=== PATIENT | male | born 1970 | race Caucasian/White ===

== ENCOUNTER 2024-01-27 16:00 | Emergency (ER) | payer OTHER, SELFPAY ==
[2024-01-27] VITALS (18 sets, daily range): BP systolic 130–152; BP diastolic 77–84; PULSE 104–116; RESP 13–20; TEMP 36.2; O2SAT 96–100
--- NOTE | 2024-01-27 16:00 | RT.EKG_ITS ---
APPROVED REPORT Exam: Resting ECG Reason for Exam: ams Patient Location: E HR:102 bpm ECG Measurements Heart Rate 102 AXIS OR 157 P 41 QRSd 81 QRS 26 QT 343 T 45 QTc 447 Conclusion Sinus tachycardia, rate 102 No STEMI
--- NOTE | 2024-01-27 16:16 | DI.CT_ITS ---
Exam(s) CT HEAD - STROKE PROTOCOL EXAM: CT HEAD - STROKE PROTOCOL CLINICAL HISTORY: AMS. TECHNIQUE: Imaging Protocol: Axial computed tomography images with coronal and sagittal reformatted images were created and reviewed COMPARISON: No exams were available for comparison FINDINGS: Ventricles and Extra axial spaces: Normal in size and morphology for the patient's age. Hemorrhage: None. Cerebral parenchyma: No evidence of acute infarct or mass. Midline shift: None. Brainstem/Cerebellum: Normal. Calvarium: Normal. Visualized Paranasal sinuses:Clear. Mastoids: Clear. Soft Tissues: Unremarkable. ORBITS: Unremarkable. PITUITARY: Not enlarged. IMPRESSION: No acute intracranial process. RADIATION DOSE DELIVERED: Total DLP DATA REPOSITORY: All CT scans at this facility are submitted to the National Radiology Data Registry (NRDR) Dose Index Registry (DIR) with the [employer] (A[employer]). RADIATION OPTIMIZATION: All CT scans at this facility use at least one of these dose optimization te chniques: automated exposure control; mA and/or kV adjustment per patient size (includes targeted exa ms where dose is matched to clinical indication); or iterative reconstruction.
--- NOTE | 2024-01-27 16:16 | W.ED.GENAD ---
Discharge Plan Disposition Patient Disposition: Home Condition: Stable Discharge Details Clinical Impression: Alcohol use disorder Primary Care Provider: Wendy Escamilla ED Provider: Niecy Bartholomew Discharge Instructions Instructions: Alcohol Use Disorder ED Additional Instructions: You were seen in the emergency department today for evaluation of altered mental status. In our department you had a full physical examination performed, had a CT scan of your brain that was normal, and had laboratory studies that were most notable for an elevated alcohol level. We did discuss sobriety maintenance resources and at this time you are concerned about your ability to stop drinking alcohol safely while taking medications, and so we have not prescribed you any sobriety maintenance medications at this time. Quitting alcohol is a challenging thing to do and often takes several attempts, so you should not feel disheartened about today's visit. I want you to follow-up with your primary care provider in the next few days to discuss this visit and any symptoms that change, worsen, or persist. You can certainly return to the emergency department if you have any concerns, and thank you for allowing us to be part of your care. HPI General Mode of arrival: ambulatory. Date/Time Provider Initiated Documentation: 01/27/24 16:16. Limitations to Documentation: altered mental status. Information obtained by: patient and family. HPI Narrative: MDM: This is a 53-year-old male patient presenting for evaluation of altered mental status. Differential includes but is not limited to intoxication, toxic exposure, withdrawal syndromes, metabolic and electrolyte derangements, anemia, kidney injury, liver disease. He certainly considered trauma though there was none reported and it did not appear that the patient had any injuries on my physical examination. The patient appears clinically intoxicated, and I do not see any evidence of acute withdrawal with the exception of the tachycardia. We will obtain laboratory studies to include CBC, CMP, serum and urine tox screen, troponin, TSH, and UA. I provided the patient with IV fluids, and we will monitor the patient here in the emergency department. I will obtain a CT head to evaluate for abnormalities to account for the patient's symptoms. ED Course: I independently interpreted the laboratory studies, which show no significant leukocytosis, anemia, or thrombocytopenia. The chemistry panel is without evidence of electrolyte abnormality, kidney dysfunction, or liver injury, though he does have an elevation in his anion gap to 21. The patient's urine is positive for ketones, likely due to alcoholic ketosis in this patient who has a normal blood glucose and a normal bicarb. I have a low concern for DKA in this nondiabetic patient. Troponin and TSH are normal, urinalysis did not show any infectious findings, but the talk screen is positive for an ethanol level of 278 as well as cocaine and THC. After metabolization in the emergency department, I had a shared decision-making conversation with the patient and his and offered him treatment for his alcohol use the patient recognizes that he does not want to drink, but states that he feels at this time that he will be drinking forever and cannot stop. I did discuss admission and the patient is desiring of discharge, and I do not see any indication to place this patient on a medical hold as he is without suicidal or homicidal ideation and is hemodynamically appropriate with a strong family support. I do not feel comfortable sending this patient home on the lithium taper given that he states he will continue to drink alcohol even though his family member would make him an excellent candidate to do so if he felt motivated. I did reassure the patient that he could seek care and reengage with sobriety maintenance resources at any time when he feels ready. At this time, the patient has had a full medical evaluation and is safe for discharge to home. They are hemodynamically stable, ambulatory, and tolerating PO. They are understanding of the follow-up plan and return precautions. They left our facility without incident. Niecy Bartholomew MD HPI: This is a 53-year-old male patient with a past medical history significant for alcohol use disorder, brought in by EMS for altered mental status. The patient was found by his camera technician to be naked and laughing on the floor of his house after the camera technician went to check on him when he missed worship. The patient's was not at home, but the patient reports that he is a heavy drinker and had several beverages this morning. He did not sustain trauma per his report, was hemodynamically appropriate though tachycardic on arrival. It took the camera technician quite some time to get the patient to our hospital by personal vehicle. The arrived and was able to provide some collateral information. The patient is not supposed to be drinking but does tend to have a daily drink despite this, and has struggled with sobriety and has not had any successful sobriety periods of time. He has not tried any medications or other management strategies for alcohol cessation, but has never experienced alcohol withdrawal syndrome, seizure, or other abnormalities when he stops drinking. The reports that last night he did not check-in and so he had not seen the patient this morning. Exam: Gen: Awake and alert HEENT: Non-icteric sclera, pupils equal and reactive at 3 mm bilaterally, EOMs are full Neck: Supple Lungs: No apparent respiratory distress, normal respiratory effort, lung sounds clear CV: Appears well perfused, heart with tachycardic rate but regular rhythm Abdomen: Non-distended, soft, nontender MSK: Moves 4 extremities without apparent limitation in ROM Skin: Visualized skin without rashes, cyanosis. Neuro: Normal Gait, no obvious focal deficits or facial asymmetry. No asterixis Psych: Inappropriate laughter, endorses feeling intoxicated, no suicidal or homicidal ideations reported Related Data Allergies Allergy/AdvReac Type Severity Reaction Status Date / Time No Known Allergies Allergy Unverified 01/27/24 16:09 General Stated Complaint: AMS/LOC STEVE: 3 Course Vital Signs Vital signs: Vital Signs Temperature 36.2 C L 01/27/24 16:03 Pulse 107 H 01/27/24 16:03 Respiratory Rate 20 01/27/24 16:03 Blood Pressure 152/82 H 01/27/24 16:03 Pulse Oximetry 100 01/27/24 16:03 Temperature 36.2 C L 01/27/24 16:03 Temperature Source Skin 01/27/24 16:03 Pulse 107 H 01/27/24 16:03 Respiratory Rate 20 01/27/24 16:03 Blood Pressure 152/82 H 01/27/24 16:03 Blood Pressure Position Sitting 01/27/24 16:03 Pulse Oximetry 100 01/27/24 16:03 Oxygen Delivery Method Room Air 01/27/24 16:03 Oxygen Flow Rate 0 01/27/24 16:03 Pain Level 0 01/27/24 16:03 Medical Decision Making Quality:SDOH Health Related Social Needs: No Data to Display PFSH All Active Problems (Updated 01/27/24 @ 19:08 by Niecy Bartholomew MD) Alcohol use disorder (Acute) Social History Smoking/Tobacco Use Status: Never Smoking risk assessment performed?: Yes Drug use: Daily Substance use type: marijuana
[2024-01-27 16:29] LABS: Abs Immature Grans 0.03 10^3/uL (0.0-0.06); Absolute Basophil Count 0.02 10^3/uL (0.0-0.2); Absolute Eosinophil Count 0.03 10^3/uL (0.0-0.7); Absolute Lymphocyte Count 2.54 10^3/uL (1.2-3.4); Absolute Monocyte Count 0.77 10^3/uL (0.1-0.8); Basophils % 0.2 %; Eosinophils % 0.3 %; HCT 50.2 % (40.0-50.0); HGB 16.8 g/dL (13.5-17.5); Immature Grans % 0.3 %; Lymphocytes % 23.1 %; MCH 30.6 pg (27.0-33.0); MCHC 33.5 % (32.0-36.0); MCV 91 fL (80-95); MPV 8.9 fL (8.0-11.0); Neutrophils % 69.1 %; Platelet Count 201 10^3/uL (130-400); RBC 5.49 10^6/uL (4.36-5.78); RDW 12.6 % (11.8-14.1); RDW-SD 42.4 fL
[2024-01-27 16:55] LABS: Troponin I < 50 ng/L (< or =60)
[2024-01-27 17:08] LABS: ALT 49 U/L (16-63); AST 35 U/L (15-37); Albumin 4.5 g/dL (3.4-5.0); Alkaline Phosphatase 52 U/L (46-116); BUN 9 mg/dL (7-18); Bilirubin, Total 0.58 mg/dL (0.2-1.0); CREATININE 0.9 mg/dL (0.70-1.30); Calcium 9.3 mg/dL (8.5-10.1); Chloride 102 mmol/L (98-107); ETHANOL BLOOD 278.1 mg/dL (<10); Estimated GFR 102.76 (mL/min/1.73m2); Glucose 116 mg/dL (74-106); Magnesium 1.7 mg/dL (1.8-2.4); Potassium 4.8 mmol/L (3.5-5.1); Sodium 144 mmol/L (136-145); TSH (W/Ref FT4) 0.83 uIU/mL (0.36-3.74); Total Protein 7.9 g/dL (6.4-8.2)
--- NOTE | 2024-01-27 18:02 | DI.VRAD_ITS ---
PROCEDURE INFORMATION: Exam: CT Head Without Contrast Exam date and time: 01/27/2024 4:37 PM Age: 53 years old Clinical indication: Other: AMS TECHNIQUE: Imaging protocol: Computed tomography of the head without contrast. COMPARISON: No relevant prior studies available. FINDINGS: Brain: Normal. No hemorrhage. Unremarkable white matter. No mass effect. Cerebral ventricles: No ventriculomegaly. Paranasal sinuses: Visualized sinuses are unremarkable. No fluid levels. Mastoid air cells: Visualized mastoid air cells are well aerated. Bones: Unremarkable. No acute fracture. Soft tissues: Unremarkable. IMPRESSION: No evidence for acute intracranial abnormality. Dictated and Authenticated by: Danuta Domínguez MD. Ordering:HEMALATHA Rock MD
[2024-01-27] MEDS: Lactated Ringers 1,000 ML 1000 ML IV (18:15)
[2024-01-27 19:07] LABS: Bilirubin Negative (Negative); Blood Negative (Negative); Clarity Clear (Clear); Glucose Negative (Negative); Ketones 80 mg/dL (Negative); Leukocyte Esterase Negative (Negative); Nitrite Negative (Negative); Specific Gravity >= 1.030 (1.005-1.025); Urobilinogen 0.2 mg/dL (Up to 0.2)
[2024-01-27 19:15] LABS: Bacteria Negative HPF (Negative); C & S Indicated? No; Casts 0-2 Hyaline LPF (Negative); Crystals Negative HPF (Negative); Epithelial Cells Rare HPF (Negative); Mucus Moderate (Negative); RBC Negative HPF (0-2); WBC 0-2 HPF (0-5)
[2024-01-27] MEDS: hydrOXYzine HCL 25 MG TAB PO (19:17)
[2024-01-27 19:20] LABS: *AMPHETAMINES SCREEN URINE Negative (Negative); *BARBITURATES SCREEN URINE Negative (Negative); *BENZODIAZEPINES SCREEN URINE Negative (Negative); Cannabinoids THC Positive (Negative); Cocaine Screen,Urine Positive (Negative); METHADONE URINE SCREEN Negative (Negative); OPIATES URINE SCREEN Negative (Negative); Tricyclic Antidepressants Negative (Negative)
== END 2024-01-27 19:18 | disposition home or self-care (01) ==
LOC: ER 20:14
PROVIDERS: Emergency Provider Emergency Medicine; PCP Family Medicine
DX: R41.82 Altered mental status, unspecified (principal); F10.90 Alcohol use, unspecified, uncomplicated
CPT/HCPCS: 36415; 36416; 80053; 80307; 82962; 93005; 96360; 99284; 70450; 80320; 81003; 81015; 83735; 84443; 84484; 85025; 93010; 99283